=== PATIENT | male | born 1975 | race African-American/Black ===

== ENCOUNTER 2019-09-26 08:17 | Emergency (ER) | payer OTHER ==
[~2019-09-26] VITALS: Ht 190.5 cm; Wt 171.0 kg
[2019-09-26] MEDS ORDERED: ACETAMINOPHEN 500 MG TAB PO ONE (10:30)
[2019-09-26] MEDS ORDERED: METHOCARBAMOL 500 MG TAB PO ONE (10:30)
[2019-09-26 11:01] VITALS: BP 143/68
== END 2019-09-26 11:09 | disposition home or self-care (01) ==
LOC: ER 08:17
DX: S80.211A Abrasion, right knee, initial encounter (principal); M79.632 Pain in left forearm; R51 Headache; M54.2 Cervicalgia; M54.5 Low back pain; M25.532 Pain in left wrist; M25.562 Pain in left knee; M25.561 Pain in right knee; Z88.2 Allergy status to sulfonamides; V89.2XXA Person injured in unspecified motor-vehicle accident, traffic, initial encounter; Y93.I9 Activity, other involving external motion; Y92.488 Other paved roadways as the place of occurrence of the external cause; Y99.8 Other external cause status
CPT/HCPCS: 70450; 72125; 73090

== ENCOUNTER 2021-04-20 16:25 | Inpatient (IN) | payer OTHER ==
[~2021-04-20] VITALS: Ht 182.9 cm; Wt 174.8 kg
[2021-04-20] MEDS ORDERED: cloNIDine HCL 0.1 MG TAB PO ONE (17:00)
[2021-04-20 17:34] LABS: Basophils # (auto) 0.1 10 ^3/uL (0-0.2); Basophils % (auto) 0.8 % (0.0-2.0); Eosinophils # (auto) 0.2 10 ^3/uL (0-0.8); Eosinophils % (auto) 2.2 % (0.0-7.0); Monocytes # (auto) 0.8 10 ^3/uL (0-1.3); Neutrophils # (auto) 5.3 10 ^3/uL (1.6-8.6); Nucleated Red Blood Cells % 0.1 %; Red Blood Cells 5.69 10^6/uL (4.5-5.90); Red Cell Distribution Width 14.6 % (11.8-14.3)
[2021-04-20 17:36] LABS: Hematocrit 45.8 % (41.0-53.0); Hemoglobin 15.3 g/dL (13.5-17.5); Lymphocytes # (auto) 2.1 10 ^3/uL (0.4-5.4); Mean Corpuscular Hemoglobin 26.8 pg (28.0-32.0); Mean Corpuscular Hgb Conc. 33.3 g/dL (32.0-36.0); Mean Corpuscular Volume 80.5 fL (80.0-100.0); White Blood Cell 8.5 10^3/uL (4.4-10.8)
[2021-04-20] MEDS ORDERED: SODIUM CHLORIDE 0.9% 1,000 ML IV ONE (17:45)
[2021-04-20 17:52] LABS: Albumin 3.7 g/dL (3.4-5.0); Calcium 9.2 mg/dL (8.5-10.1); Magnesium 2.4 mg/dL (1.6-2.6); Potassium 3.3 mmol/L (3.5-5.1)
[2021-04-20 17:57] LABS: Bilirubin, Total 0.2 mg/dL (0.2-1.0); Total Protein 7.9 g/dL (6.4-8.2)
[2021-04-20 18:17] LABS: INR 0.96 (0.9-1.15); Partial Thromboplastin Time 29.5 sec (23.6-33.0)
[2021-04-20] MEDS ORDERED: DOCUSATE SOD 100 MG CAP PO PRN (21:00)
[2021-04-20] MEDS: SODIUM CHLORIDE 0.9% 1,000 ML IV SCH (21:00)
[2021-04-20] MEDS ORDERED: ACETAMINOPHEN 325 MG TAB PO PRN (21:00)
[2021-04-20] MEDS ORDERED: DEXTROSE (50%) 50ML SYRG IV PRN (21:00)
[2021-04-20] MEDS ORDERED: POTASSIUM CHL 20 Meq TABLET PO ONE (21:15)
[2021-04-20] MEDS: METOPROLOL TARTRATE 25 MG TAB PO SCH (22:00)
[2021-04-20] MEDS: InsuLIN REG 1unit/0.01ml Soln (100units/ml) SC SCH (22:00)
[2021-04-20] MEDS: ACCU-CHEK COMFORT CURVE STRIP VI SCH (22:19)
[2021-04-20] MEDS: ATORVASTATIN 20 MG TAB PO SCH (22:30)
[2021-04-20] MEDS ORDERED: MORPHINE SULFATE INJECTION 2 MG/ML SYRG IV PRN (23:30)
[2021-04-20] MEDS ORDERED: NITROGLYCERIN 0.4 MG SL TAB SL PRN (23:30)
[2021-04-21] MEDS: HYDROcodone-ACET 5/325MG TAB PO PRN ×2 (00:24→10:00)
[2021-04-21 05:00] VITALS: BP 169/103
[2021-04-21 05:23] VITALS: BP 169/103
[2021-04-21] MEDS ORDERED: HYDR25TA5 PO (05:45)
[2021-04-21] MEDS ORDERED: IBUP800T27 PO (05:45)
[2021-04-21] MEDS: ACCU-CHEK COMFORT CURVE STRIP VI SCH ×4 (06:52→22:23)
[2021-04-21] MEDS: InsuLIN REG 1unit/0.01ml Soln (100units/ml) SC SCH ×4 (06:54→22:27)
[2021-04-21 08:06] LABS: Basophils # (auto) 0 10 ^3/uL (0-0.2); Eosinophils # (auto) 0.2 10 ^3/uL (0-0.8); Monocytes # (auto) 0.7 10 ^3/uL (0-1.3); Nucleated Red Blood Cells % 0.2 %
[2021-04-21 08:09] LABS: Basophils % (auto) 0.5 % (0.0-2.0); Eosinophils % (auto) 2.3 % (0.0-7.0); Hematocrit 42.2 % (41.0-53.0); Lymphocytes # (auto) 2.1 10 ^3/uL (0.4-5.4); Lymphocytes % (auto) 28.1 % (10.0-50.0); Mean Corpuscular Hemoglobin 26.6 pg (28.0-32.0); Mean Corpuscular Hgb Conc. 33.1 g/dL (32.0-36.0); Mean Corpuscular Volume 80.3 fL (80.0-100.0); Monocytes % (auto) 9.3 % (0.0-12.0); Neutrophils # (auto) 4.5 10 ^3/uL (1.6-8.6); Neutrophils % (auto) 59.8 % (37.0-80.0); Red Blood Cells 5.25 10^6/uL (4.5-5.90); Red Cell Distribution Width 14.5 % (11.8-14.3); White Blood Cell 7.6 10^3/uL (4.4-10.8)
[2021-04-21 08:21] LABS: Albumin 3.2 g/dL (3.4-5.0); BUN/Creatinine Ratio 12.9; Calcium 8.9 mg/dL (8.5-10.1); Potassium 3.1 mmol/L (3.5-5.1)
[2021-04-21 08:24] LABS: Bilirubin, Total 0.6 mg/dL (0.2-1.0)
[2021-04-21 09:00] VITALS: BP 156/81
[2021-04-21] MEDS: ASPirin 81 mg TAB PO SCH (10:00)
[2021-04-21] MEDS: FAMOTIDINE (10MG/ML) 2ML VL IV SCH (10:00)
[2021-04-21] MEDS: METOPROLOL TARTRATE 25 MG TAB PO SCH ×2 (10:00→22:23)
[2021-04-21] MEDS ORDERED: POTASSIUM CHL 20 Meq TABLET PO ONE (12:30)
[2021-04-21] MEDS: SODIUM CHLORIDE 0.9% 1,000 ML IV SCH (13:40)
[2021-04-21] MEDS: ONDANSETRON HCL 4 MG/2 ML VIAL IV PRN ×2 (14:00→18:25)
[2021-04-21 16:00] VITALS: BP 154/98
[2021-04-21 22:00] VITALS: BP 147/105
[2021-04-21] MEDS: ATORVASTATIN 20 MG TAB PO SCH (22:22)
[2021-04-22] MEDS: HYDROcodone-ACET 5/325MG TAB PO PRN ×2 (01:36→21:34)
[2021-04-22 04:35] VITALS: BP 132/72
[2021-04-22] MEDS: SODIUM CHLORIDE 0.9% 1,000 ML IV SCH ×2 (06:10→23:00)
[2021-04-22] MEDS: ACCU-CHEK COMFORT CURVE STRIP VI SCH ×4 (06:28→21:25)
[2021-04-22] MEDS: InsuLIN REG 1unit/0.01ml Soln (100units/ml) SC SCH ×4 (06:32→21:31)
[2021-04-22 08:44] VITALS: BP 145/97
[2021-04-22] MEDS: FAMOTIDINE (10MG/ML) 2ML VL IV SCH (10:00)
[2021-04-22] MEDS: METOPROLOL TARTRATE 25 MG TAB PO SCH ×2 (10:00→11:30)
[2021-04-22] MEDS: ASPirin 81 mg TAB PO SCH (10:00)
[2021-04-22] MEDS: hydrALAZINE HCL 20 MG/ML VL IV PRN (12:13)
[2021-04-22 13:00] VITALS: BP_SYST 139; BP_SYST 150; BP_DIAS 113; BP_DIAS 91
[2021-04-22 17:02] VITALS: BP 115/69
[2021-04-22] MEDS: ATORVASTATIN 20 MG TAB PO SCH (21:26)
[2021-04-22 23:03] LABS: Cholesterol 133 mg/dL (< 200); HDL Cholesterol 51 mg/dL (40-59); LDL Cholesterol 66 mg/dL (< 100); Triglycerides 103 mg/dL (< 150)
[2021-04-23 05:04] VITALS: BP 137/70
[2021-04-23] MEDS: ACCU-CHEK COMFORT CURVE STRIP VI SCH ×4 (06:41→22:01)
[2021-04-23] MEDS: InsuLIN REG 1unit/0.01ml Soln (100units/ml) SC SCH ×4 (06:47→22:11)
[2021-04-23 08:00] VITALS: BP 134/81
[2021-04-23] MEDS: ASPirin 81 mg TAB PO SCH (10:14)
[2021-04-23] MEDS: METOPROLOL TARTRATE 25 MG TAB PO SCH ×2 (10:15→22:01)
[2021-04-23] MEDS: FAMOTIDINE (10MG/ML) 2ML VL IV SCH (10:16)
[2021-04-23] MEDS: CLOPIDOGREL BISULFATE 75 MG TAB PO SCH (10:16)
[2021-04-23 12:00] VITALS: BP_SYST 155; BP_SYST 165; BP_DIAS 142; BP_DIAS 96
[2021-04-23] MEDS: hydrALAZINE HCL 20 MG/ML VL IV PRN ×2 (13:02→19:10)
[2021-04-23 16:00] VITALS: BP 155/96
[2021-04-23] MEDS: HYDROcodone-ACET 5/325MG TAB PO PRN (20:18)
[2021-04-23] MEDS: SODIUM CHLORIDE 0.9% 1,000 ML IV SCH (20:45)
[2021-04-23] MEDS: ATORVASTATIN 20 MG TAB PO SCH (22:00)
[2021-04-24 05:15] VITALS: BP 149/75
[2021-04-24] MEDS: ACCU-CHEK COMFORT CURVE STRIP VI SCH ×3 (06:03→17:00)
[2021-04-24] MEDS: InsuLIN REG 1unit/0.01ml Soln (100units/ml) SC SCH ×3 (06:03→17:00)
[2021-04-24] MEDS: SODIUM CHLORIDE 0.9% 1,000 ML IV SCH (06:03)
[2021-04-24 09:00] VITALS: BP 146/101
[2021-04-24] MEDS ORDERED: IOHEXOL 350 MG/ML 100ML IJ ONE (09:13)
[2021-04-24] MEDS: FAMOTIDINE (10MG/ML) 2ML VL IV SCH (10:34)
[2021-04-24] MEDS: CLOPIDOGREL BISULFATE 75 MG TAB PO SCH (10:34)
[2021-04-24] MEDS: ASPirin 81 mg TAB PO SCH (10:38)
[2021-04-24] MEDS: METOPROLOL TARTRATE 25 MG TAB PO SCH ×2 (10:39→20:24)
[2021-04-24 13:00] VITALS: BP 144/102
[2021-04-24] MEDS ORDERED: NITR0.4S29 SL (13:06)
[2021-04-24] MEDS ORDERED: ASPI1CHW15 PO (13:06)
[2021-04-24] MEDS ORDERED: ATOR20TA50 PO (13:06)
[2021-04-24] MEDS ORDERED: CLOP75TA28 PO (13:06)
[2021-04-24] MEDS ORDERED: METF-370 PO (13:06)
[2021-04-24] MEDS ORDERED: MET25T PO (13:06)
[2021-04-24 17:00] VITALS: BP 156/114
[2021-04-24 18:57] VITALS: BP 156/114
[2021-04-24] MEDS: ATORVASTATIN 20 MG TAB PO SCH (20:23)
== END 2021-04-24 20:35 | disposition home health service (06) | DRG 45 ==
LOC: ER 16:25 → TELE 23:17 → TELE-WESTW 04-21 04:50
PROVIDERS: ADMIT Nurse Practitioner Family; ATTEND Internal Medicine
DX: I63.9 Cerebral infarction, unspecified (principal); I67.4 Hypertensive encephalopathy; N17.9 Acute kidney failure, unspecified; E11.649 Type 2 diabetes mellitus with hypoglycemia without coma; E66.01 Morbid (severe) obesity due to excess calories; E87.6 Hypokalemia; E11.65 Type 2 diabetes mellitus with hyperglycemia; I16.1 Hypertensive emergency; N18.9 Chronic kidney disease, unspecified; E11.22 Type 2 diabetes mellitus with diabetic chronic kidney disease; Z71.3 Dietary counseling and surveillance; E78.5 Hyperlipidemia, unspecified; G47.00 Insomnia, unspecified; G47.10 Hypersomnia, unspecified; I12.9 Hypertensive chronic kidney disease with stage 1 through stage 4 chronic kidney disease, or unspecified chronic kidney disease; M54.50 Low back pain, unspecified; Z20.822 Contact with and (suspected) exposure to COVID-19; R47.81 Slurred speech; R47.1 Dysarthria and anarthria; I77.810 Thoracic aortic ectasia; R29.810 Facial weakness; Z79.82 Long term (current) use of aspirin; Z79.899 Other long term (current) drug therapy; Z82.3 Family history of stroke; Z82.49 Family history of ischemic heart disease and other diseases of the circulatory system; Z83.3 Family history of diabetes mellitus; Z86.73 Personal history of transient ischemic attack (TIA), and cerebral infarction without residual deficits; Z88.2 Allergy status to sulfonamides; Z68.43 Body mass index [BMI] 50.0-59.9, adult; Z79.84 Long term (current) use of oral hypoglycemic drugs
CPT/HCPCS: 36415; 70450; 70551; 71045; 71260; 74177; 80053; 80061; 82962; 83036; 83735; 84443; 84484; 85025; 85610; 85730; 87426; 92523; 92610; 93005; 93306; 93886; 96360; 96361; G0378; J1815; J3490

== ENCOUNTER 2021-04-26 03:57 | Inpatient (IN) | payer OTHER ==
[~2021-04-26] VITALS: Ht 182.9 cm; Wt 175.3 kg
[~2021-04-26 03:57] MED LIST: ASPI1CHW15 PO; ATOR20TA50 PO; CLOP75TA28 PO; HYDR25TA5 PO; IBUP800T27 PO; MET25T PO; METF-370 PO; NITR0.4S29 SL
[2021-04-26] MEDS ORDERED: LABETALOL HCL 5 MG/ML 4ML SYRINGE IV ONE (04:30)
[2021-04-26 05:09] LABS: Basophils # (auto) 0.1 10 ^3/uL (0-0.2); Mean Corpuscular Volume 80.9 fL (80.0-100.0); Monocytes # (auto) 0.8 10 ^3/uL (0-1.3); Neutrophils # (auto) 5.3 10 ^3/uL (1.6-8.6); Nucleated Red Blood Cells % 0.1 %; White Blood Cell 8.4 10^3/uL (4.4-10.8)
[2021-04-26 05:11] LABS: Basophils % (auto) 0.7 % (0.0-2.0); Eosinophils # (auto) 0.2 10 ^3/uL (0-0.8); Eosinophils % (auto) 1.9 % (0.0-7.0); Hematocrit 45.2 % (41.0-53.0); Hemoglobin 14.7 g/dL (13.5-17.5); Lymphocytes # (auto) 2.1 10 ^3/uL (0.4-5.4); Lymphocytes % (auto) 24.9 % (10.0-50.0); Mean Corpuscular Hemoglobin 26.3 pg (28.0-32.0); Mean Corpuscular Hgb Conc. 32.5 g/dL (32.0-36.0); Neutrophils % (auto) 63.5 % (37.0-80.0); Red Blood Cells 5.59 10^6/uL (4.5-5.90); Red Cell Distribution Width 14.2 % (11.8-14.3)
[2021-04-26 05:16] LABS: INR 0.99 (0.9-1.15); Partial Thromboplastin Time 31.8 sec (23.6-33.0)
[2021-04-26 05:27] LABS: Albumin 3.5 g/dL (3.4-5.0); Calcium 9.3 mg/dL (8.5-10.1); Potassium 3.3 mmol/L (3.5-5.1)
[2021-04-26 05:29] LABS: BUN/Creatinine Ratio 16.8
[2021-04-26 05:31] LABS: Bilirubin, Total 0.4 mg/dL (0.2-1.0); Total Protein 7.5 g/dL (6.4-8.2)
[2021-04-26 06:55] LABS: Urine Bacteria NONE SEEN /hpf (None Seen); Urine Blood Negative /uL (Negative); Urine Specific Gravity 1.018 (1.001-1.035); Urine WBC 1 /hpf (0 - 3)
[2021-04-26] MEDS ORDERED: LORazepam 2MG/ML-1ML VIAL IV ONE (09:15)
[2021-04-26 11:47] LABS: Amphetamine Screen, Urine NEGATIVE (NEGATIVE); Barbiturate Scree,Urine NEGATIVE (NEGATIVE); Benzodiazephine Screen, Urine NEGATIVE (NEGATIVE); Cannabinoid Screen, Urine NEGATIVE (NEGATIVE); Cocaine Screen, Urine NEGATIVE (NEGATIVE); Opiate Scree,Urine NEGATIVE (NEGATIVE); Phencyclidine Screen, Urine NEGATIVE (NEGATIVE)
[2021-04-26] MEDS ORDERED: ONDANSETRON HCL 4 MG/2 ML VIAL IV PRN (13:00)
[2021-04-26] MEDS ORDERED: HYDROcodone-ACET 5/325MG TAB PO PRN (13:00)
[2021-04-26] MEDS ORDERED: ACETAMINOPHEN 325 MG TAB PO PRN (13:00)
[2021-04-26] MEDS ORDERED: NITROGLYCERIN 0.4 MG SL TAB SL PRN ×2 (13:00→15:45)
[2021-04-26] MEDS ORDERED: TEMAZEPAM 15 MG CAP PO PRN (13:00)
[2021-04-26] MEDS ORDERED: MORPHINE SULFATE 4 MG/ML SYR/VIAL IV PRN (13:00)
[2021-04-26] MEDS ORDERED: MORPHINE SULFATE INJECTION 2 MG/ML SYRG IV PRN (13:00)
[2021-04-26] MEDS ORDERED: DEXTROSE (50%) 50ML SYRG IV PRN (15:45)
[2021-04-26] MEDS: ACCU-CHEK COMFORT CURVE STRIP VI SCH ×2 (17:03→22:00)
[2021-04-26] MEDS: InsuLIN REG 1unit/0.01ml Soln (100units/ml) SC SCH ×2 (17:24→22:00)
[2021-04-26] MEDS: metFORMIN HYDROCHLORIDE 500 MG TAB PO SCH (17:51)
[2021-04-26] MEDS ORDERED: amLODIPine BESYLATE 5 MG TAB PO ONE (19:45)
[2021-04-26] MEDS ORDERED: POTASSIUM CHL 20 Meq TABLET PO ONE (19:45)
[2021-04-26] MEDS ORDERED: METOPROLOL TARTRATE 50 MG TAB PO ONE (19:45)
[2021-04-26] MEDS: ATORVASTATIN 20 MG TAB PO SCH (20:07)
[2021-04-26 20:30] VITALS: BP 175/106
[2021-04-26] MEDS: METOPROLOL TARTRATE 50 MG TAB PO SCH (22:00)
[2021-04-26] MEDS ORDERED: METOPROLOL TARTRATE 25 MG TAB PO SCH (22:00)
[2021-04-26] MEDS ORDERED: METOPROLOL TARTRATE 50 MG TAB PO SCH (22:00)
[2021-04-26] MEDS ORDERED: LABETALOL HCL 5 MG/ML 4ML SYRINGE IV PRN (23:15)
[2021-04-27 01:09] VITALS: BP 175/106
[2021-04-27 05:00] VITALS: BP 148/105
[2021-04-27] MEDS: ACCU-CHEK COMFORT CURVE STRIP VI SCH ×4 (06:17→23:28)
[2021-04-27] MEDS: InsuLIN REG 1unit/0.01ml Soln (100units/ml) SC SCH ×4 (06:21→23:29)
[2021-04-27 09:00] VITALS: BP 169/110
[2021-04-27] MEDS: HCTZ 25 MG TAB PO SCH (09:40)
[2021-04-27] MEDS: METOPROLOL TARTRATE 50 MG TAB PO SCH ×2 (09:41→23:28)
[2021-04-27] MEDS: CLOPIDOGREL BISULFATE 75 MG TAB PO SCH (09:42)
[2021-04-27] MEDS: metFORMIN HYDROCHLORIDE 500 MG TAB PO SCH ×2 (09:44→18:46)
[2021-04-27] MEDS ORDERED: ENOXAPARIN SOD 40 MG/0.4 ML SYRINGE SC SCH (10:00)
[2021-04-27] MEDS ORDERED: amLODIPine BESYLATE 5 MG TAB PO SCH ×2 (10:00)
[2021-04-27 10:59] LABS: Basophils % (auto) 0.7 % (0.0-2.0); Eosinophils # (auto) 0.1 10 ^3/uL (0-0.8); Eosinophils % (auto) 1.6 % (0.0-7.0); Hemoglobin 15.4 g/dL (13.5-17.5); White Blood Cell 7.4 10^3/uL (4.4-10.8)
[2021-04-27 11:01] LABS: Basophils # (auto) 0 10 ^3/uL (0-0.2); Hematocrit 46.2 % (41.0-53.0); Lymphocytes # (auto) 1.9 10 ^3/uL (0.4-5.4); Lymphocytes % (auto) 25.8 % (10.0-50.0); Mean Corpuscular Hemoglobin 26.8 pg (28.0-32.0); Mean Corpuscular Hgb Conc. 33.3 g/dL (32.0-36.0); Mean Corpuscular Volume 80.4 fL (80.0-100.0); Monocytes # (auto) 0.7 10 ^3/uL (0-1.3); Monocytes % (auto) 8.9 % (0.0-12.0); Neutrophils # (auto) 4.7 10 ^3/uL (1.6-8.6); Nucleated Red Blood Cells % 0.2 %; Red Blood Cells 5.75 10^6/uL (4.5-5.90); Red Cell Distribution Width 14.4 % (11.8-14.3)
[2021-04-27 11:10] LABS: Calcium 9.5 mg/dL (8.5-10.1); Potassium 3.3 mmol/L (3.5-5.1)
[2021-04-27 11:16] LABS: Albumin 3.7 g/dL (3.4-5.0); BUN/Creatinine Ratio 14.7; Bilirubin, Total 0.6 mg/dL (0.2-1.0); Total Protein 7.9 g/dL (6.4-8.2)
[2021-04-27 13:00] VITALS: BP 158/119
[2021-04-27] MEDS ORDERED: amLODIPine BESYLATE 5 MG TAB PO ONE ×2 (15:00→15:45)
[2021-04-27 17:00] VITALS: BP 153/108
[2021-04-27 22:05] VITALS: BP 138/90
[2021-04-27] MEDS: ATORVASTATIN 20 MG TAB PO SCH (23:27)
[2021-04-28 05:00] VITALS: BP 117/70
[2021-04-28] MEDS: ACCU-CHEK COMFORT CURVE STRIP VI SCH ×4 (06:51→21:39)
[2021-04-28] MEDS: InsuLIN REG 1unit/0.01ml Soln (100units/ml) SC SCH ×4 (06:51→21:43)
[2021-04-28 09:00] VITALS: BP 166/111
[2021-04-28] MEDS: ASPirin-EC 81 mg tab PO SCH (09:30)
[2021-04-28] MEDS: metFORMIN HYDROCHLORIDE 500 MG TAB PO SCH ×2 (09:30→19:02)
[2021-04-28] MEDS: CLOPIDOGREL BISULFATE 75 MG TAB PO SCH (09:31)
[2021-04-28] MEDS: HCTZ 25 MG TAB PO SCH (09:32)
[2021-04-28] MEDS: CARVEDILOL 12.5 MG TAB PO SCH ×2 (09:32→21:38)
[2021-04-28] MEDS: amLODIPine BESYLATE 5 MG TAB PO SCH (09:33)
[2021-04-28] MEDS ORDERED: amLODIPine BESYLATE 5 MG TAB PO SCH (10:00)
[2021-04-28 13:00] VITALS: BP 149/109
[2021-04-28 17:00] VITALS: BP 117/79
[2021-04-28] MEDS: ATORVASTATIN 20 MG TAB PO SCH (21:39)
[2021-04-28 22:00] VITALS: BP 125/84
[2021-04-29 05:00] VITALS: BP 138/79
[2021-04-29] MEDS: InsuLIN REG 1unit/0.01ml Soln (100units/ml) SC SCH ×3 (06:47→16:20)
[2021-04-29] MEDS: ACCU-CHEK COMFORT CURVE STRIP VI SCH ×3 (06:52→16:19)
[2021-04-29 08:00] VITALS: BP 156/80
[2021-04-29] MEDS: metFORMIN HYDROCHLORIDE 500 MG TAB PO SCH (09:18)
[2021-04-29] MEDS: CARVEDILOL 12.5 MG TAB PO SCH (09:18)
[2021-04-29] MEDS: HCTZ 25 MG TAB PO SCH (09:19)
[2021-04-29] MEDS: ASPirin-EC 81 mg tab PO SCH (09:19)
[2021-04-29] MEDS: amLODIPine BESYLATE 5 MG TAB PO SCH (09:20)
[2021-04-29] MEDS: CLOPIDOGREL BISULFATE 75 MG TAB PO SCH (09:20)
[2021-04-29 12:00] VITALS: BP 141/91
[2021-04-29] MEDS ORDERED: CAR125T PO (15:22)
[2021-04-29] MEDS ORDERED: NIFE1TAB31 PO (15:23)
[2021-04-29 16:00] VITALS: BP 132/96
[2021-04-29] MEDS ORDERED: NIFEdipine ER 30 MG TAB PO ONE (16:15)
[2021-04-29 17:02] VITALS: BP 141/91
[2021-04-30] MEDS ORDERED: NIFEdipine ER 30 MG TAB PO SCH (10:00)
== END 2021-04-29 18:05 | disposition home or self-care (01) | DRG 45 ==
LOC: ER 04:07 → TELE 12:50 → TELE-CENTR 21:05
PROVIDERS: ADMIT Internal Medicine; ATTEND Internal Medicine
DX: I63.81 Other cerebral infarction due to occlusion or stenosis of small artery (principal); E11.22 Type 2 diabetes mellitus with diabetic chronic kidney disease; Z68.43 Body mass index [BMI] 50.0-59.9, adult; I16.1 Hypertensive emergency; E11.65 Type 2 diabetes mellitus with hyperglycemia; E66.01 Morbid (severe) obesity due to excess calories; E78.00 Pure hypercholesterolemia, unspecified; N18.9 Chronic kidney disease, unspecified; E78.5 Hyperlipidemia, unspecified; E87.6 Hypokalemia; F17.200 Nicotine dependence, unspecified, uncomplicated; I12.9 Hypertensive chronic kidney disease with stage 1 through stage 4 chronic kidney disease, or unspecified chronic kidney disease; G47.10 Hypersomnia, unspecified; R47.81 Slurred speech; R29.810 Facial weakness; M54.50 Low back pain, unspecified; Z20.822 Contact with and (suspected) exposure to COVID-19; Z79.899 Other long term (current) drug therapy; Z82.49 Family history of ischemic heart disease and other diseases of the circulatory system; Z83.3 Family history of diabetes mellitus; Z82.3 Family history of stroke; Z79.02 Long term (current) use of antithrombotics/antiplatelets; Z79.82 Long term (current) use of aspirin; Z88.2 Allergy status to sulfonamides; Z86.73 Personal history of transient ischemic attack (TIA), and cerebral infarction without residual deficits; Z71.3 Dietary counseling and surveillance; Z79.84 Long term (current) use of oral hypoglycemic drugs
CPT/HCPCS: 36415; 70450; 70551; 80053; 80307; 81001; 82962; 84484; 85025; 85610; 85730; 87426; 92523; 92610; 93005; 96374; G0378; J1815

== ENCOUNTER 2021-05-20 14:32 | Emergency (ER) | payer OTHER ==
[~2021-05-20] VITALS: Ht 182.9 cm; Wt 173.3 kg
[~2021-05-20 14:32] MED LIST changes: +CAR125T PO; -MET25T PO; +NIFE1TAB31 PO
[2021-05-20 18:10] VITALS: BP 153/101
[2021-05-20] MEDS ORDERED: cloNIDine HCL 0.1 MG TAB PO ONE (18:15)
== END 2021-05-20 18:29 | disposition home or self-care (01) ==
LOC: ER 14:32
DX: R51.9 Headache, unspecified (principal); E11.9 Type 2 diabetes mellitus without complications; I10 Essential (primary) hypertension; Z86.73 Personal history of transient ischemic attack (TIA), and cerebral infarction without residual deficits; Z88.2 Allergy status to sulfonamides
CPT/HCPCS: 70450; 93005

== ENCOUNTER 2021-07-09 22:41 | Emergency (ER) | payer OTHER ==
[~2021-07-09] VITALS: Ht 185.4 cm; Wt 172.4 kg
[2021-07-09] MEDS ORDERED: amLODIPine BESYLATE 5 MG TAB PO ONE (23:15)
[2021-07-09 23:33] LABS: Basophils # (auto) 0.1 10 ^3/uL (0-0.2); Eosinophils # (auto) 0.2 10 ^3/uL (0-0.8); Lymphocytes # (auto) 2.5 10 ^3/uL (0.4-5.4); White Blood Cell 9.9 10^3/uL (4.4-10.8)
[2021-07-09 23:34] LABS: Basophils % (auto) 0.6 % (0.0-2.0); Eosinophils % (auto) 1.9 % (0.0-7.0); Hematocrit 42.8 % (41.0-53.0); Hemoglobin 14.4 g/dL (13.5-17.5); Lymphocytes % (auto) 25.5 % (10.0-50.0); Mean Corpuscular Hemoglobin 27.1 pg (28.0-32.0); Mean Corpuscular Hgb Conc. 33.6 g/dL (32.0-36.0); Mean Corpuscular Volume 80.8 fL (80.0-100.0); Monocytes % (auto) 10.1 % (0.0-12.0); Neutrophils # (auto) 6.1 10 ^3/uL (1.6-8.6); Neutrophils % (auto) 61.9 % (37.0-80.0); Red Cell Distribution Width 14.7 % (11.8-14.3)
[2021-07-09 23:53] LABS: Albumin 3.7 g/dL (3.4-5.0); BUN/Creatinine Ratio 14.3; Calcium 9.4 mg/dL (8.5-10.1); Potassium 3.9 mmol/L (3.5-5.1)
[2021-07-09 23:56] LABS: Bilirubin, Total 0.3 mg/dL (0.2-1.0); Total Protein 7.3 g/dL (6.4-8.2)
[2021-07-10 01:02] VITALS: BP 126/83
== END 2021-07-10 01:08 | disposition home or self-care (01) ==
LOC: ER 22:41
DX: I16.0 Hypertensive urgency (principal); I10 Essential (primary) hypertension; E66.01 Morbid (severe) obesity due to excess calories; E11.9 Type 2 diabetes mellitus without complications; Z86.73 Personal history of transient ischemic attack (TIA), and cerebral infarction without residual deficits; Z68.43 Body mass index [BMI] 50.0-59.9, adult; Z88.2 Allergy status to sulfonamides
CPT/HCPCS: 36415; 80053; 84484; 85025

== ENCOUNTER 2022-07-19 19:36 | Emergency (ER) | payer MEDICAID, OTHER ==
[~2022-07-19] VITALS: Ht 182.9 cm; Wt 167.8 kg
[2022-07-19 21:37] LABS: Basophils # (auto) 0.1 10 ^3/uL (0-0.2); Basophils % (auto) 0.8 % (0.0-2.0); Eosinophils # (auto) 0.1 10 ^3/uL (0-0.8); Hematocrit 42.7 % (41.0-53.0); Hemoglobin 14.1 g/dL (13.5-17.5); Lymphocytes # (auto) 2.7 10 ^3/uL (0.4-5.4); Lymphocytes % (auto) 28.9 % (10.0-50.0); Mean Corpuscular Hemoglobin 27.1 pg (28.0-32.0); Monocytes # (auto) 1.2 10 ^3/uL (0-1.3); Monocytes % (auto) 12.7 % (0.0-12.0); Neutrophils # (auto) 5.3 10 ^3/uL (1.6-8.6); Neutrophils % (auto) 56.6 % (37.0-80.0); Nucleated Red Blood Cells % 0.1 %; Red Cell Distribution Width 14.1 % (11.8-14.3); White Blood Cell 9.5 10^3/uL (4.4-10.8)
[2022-07-19 21:50] LABS: INR 0.91 (0.9-1.15); Partial Thromboplastin Time 32.5 sec (24.6-33.4)
[2022-07-19 21:54] LABS: Albumin 3.7 g/dL (3.4-5.0); Calcium 9.5 mg/dL (8.5-10.1); Potassium 3.6 mmol/L (3.5-5.1)
[2022-07-19 21:57] LABS: Bilirubin, Total 0.3 mg/dL (0.2-1.0)
[2022-07-19] MEDS ORDERED: AMOX-277 PO (22:44)
[2022-07-19] MEDS ORDERED: DESL5TAB29 PO (22:44)
[2022-07-20 00:09] VITALS: BP 132/83
== END 2022-07-20 00:12 | disposition home or self-care (01) ==
LOC: ER 19:36
DX: R55 Syncope and collapse (principal); J01.00 Acute maxillary sinusitis, unspecified; E11.9 Type 2 diabetes mellitus without complications; I10 Essential (primary) hypertension; Z86.73 Personal history of transient ischemic attack (TIA), and cerebral infarction without residual deficits; Z88.2 Allergy status to sulfonamides
CPT/HCPCS: 36415; 70450; 70486; 71045; 72125; 80053; 83605; 83690; 83880; 84484; 85025; 85379; 85610; 85730; 87040; 93005

== ENCOUNTER 2023-11-19 10:54 | Emergency (ER) | payer MEDICAID ==
[~2023-11-19] VITALS: Ht 182.9 cm; Wt 165.3 kg
[~2023-11-19 10:54] MED LIST changes: +AMOX875T4 PO; +ASPI-736 PO; -ASPI1CHW15 PO; -CAR125T PO; +CARV-216 PO; +DESL5TAB29 PO; +IBUP-1456 PO; -IBUP800T27 PO
[2023-11-19 12:25] VITALS: BP 143/92; PULSE 99; RESP 16; TEMP 98.6; O2SAT 95
[2023-11-19] MEDS: methylPREDNISolone SOD SUCC 125 MG/2 ML VL IM ONE (12:57)
[2023-11-19] MEDS ORDERED: CLIN1CAP70 PO (13:29)
[2023-11-19] MEDS ORDERED: METH4PAK PO (13:29)
== END 2023-11-19 13:39 | disposition home or self-care (01) ==
LOC: ER 10:54
DX: T78.3XXA Angioneurotic edema, initial encounter (principal); K04.7 Periapical abscess without sinus; I10 Essential (primary) hypertension; E11.9 Type 2 diabetes mellitus without complications; Z86.73 Personal history of transient ischemic attack (TIA), and cerebral infarction without residual deficits; Z88.2 Allergy status to sulfonamides; Z79.899 Other long term (current) drug therapy; Y92.89 Other specified places as the place of occurrence of the external cause
CPT/HCPCS: 96372; 99283; J2919

== ENCOUNTER 2024-09-20 09:06 | Emergency (ER) | payer MEDICAID ==
[~2024-09-20] VITALS: Ht 182.9 cm; Wt 159.7 kg
[~2024-09-20 09:06] MED LIST changes: +CLIN1CAP70 PO; +METH4PAK PO
[2024-09-20 09:20] VITALS: TEMP 97.9
[2024-09-20] MEDS: SODIUM CHLORIDE 0.9% 1,000 ML IV ONE (09:54)
[2024-09-20] MEDS: methylPREDNISolone SOD SUCC 125 MG/2 ML VL IV ONE (09:54)
[2024-09-20] MEDS: FAMOTIDINE (10MG/ML) 2ML VL IV ONE (09:54)
[2024-09-20] MEDS: diphenhdrAMINE HCL 50 MG/1 ML VL IV ONE (09:54)
--- NOTE | 2024-09-20 10:04 | ED.PDOC ---
HPI Allergic reaction HPI Comments 49 y/o M, presents to the ED for CC of allergic reaction. Patient states, that he was exposed to unknown irritant and has been experiencing right sided facial swelling onset, 0830 this morning (09/20/24). Patient reports, that he did eat pot roast with mushrooms however, is unsure if symptoms my be d/t this. Patient denies respiratory distress, drooling, or difficulty swallowing. No other symptoms or modifying factors present at this time. Chief Complaint: Allergic Reaction Time Seen by MD: 09:50 Primary Care Provider: ROBINSON Reviewed Notes: Nurses Notes, Medications, Allergies Allergies: Coded Allergies: Sulfa Antibiotics (Verified Allergy, Unknown, 09/26/19) Uncoded Allergies: FOOD MULTIPLE (Allergy, Intermediate, 09/20/24) ENVIRONMENTAL (Allergy, Unknown, 09/20/24) Home Meds Active Scripts Clindamycin Hcl (Clindamycin Hcl) 300 Mg Cap, 300 MG PO QID, #28 CAP Prov:SREEDHAR BOLAND 11/19/23 Methylprednisolone (Medrol Dosepak) 4 Mg Tyler, 4 MG PO UD, #21 TAB UAD Prov:SREEDHAR BOLAND 11/19/23 Desloratadine (Clarinex) 5 Mg Tab, 5 MG PO DAILY for 10 Days, #10 TAB Prov:CAESAR PEÑA DO 07/19/22 Amoxicillin & Pot Clavulanate (Amoxicillin/Potassium Cla) 875 Mg Tab, 1 TAB PO BID for 10 Days, #20 TAB Prov:CAESAR PEÑA DO 07/19/22 Nifedipine (Nifedipine Er) 30 Mg Tab, 60 MG PO DAILY for 30 Days, #60 TAB Prov:TREASURE JADE [employer] [employer] 04/29/21 Carvedilol (COREG) 12.5 Mg Tab, 12.5 MG PO Q12HR for 30 Days, #60 TAB Prov:TREASURE JADE [employer] [employer] 04/29/21 Metformin Hydrochloride (Metformin Hcl) 500 Mg Tab, 1 TAB PO BID, #60 TAB 3 Refills Prov:TREASURE JADE NP 04/24/21 Nitroglycerin (NTROSTAT SUBLINGUAL) 0.4 Mg Sl, 0.4 MG SL Q5MINP PRN for 30 Days, #30 TAB Prov:TREASURE JADE NP 04/24/21 Clopidogrel Bisulfate (Plavix) 75 Mg Tab, 75 MG PO DAILY for 30 Days, #30 TAB Prov:TREASURE JADE [employer] [employer] 04/24/21 Aspirin (Aspirin Low Strength) 81 Mg Chw, 81 MG PO DAILY for 30 Days, #30 TAB.CHEW Prov:TREASURE JADE [employer] [employer] 04/24/21 Atorvastatin Calcium (ATORVASTATIN CALCIUM) 20 Mg Tab, 40 MG PO HS for 30 Days, #30 TAB Prov:TREASURE JADE [employer] [employer] 04/24/21 Reported Medications Ibuprofen (Ibuprofen) 800 Mg Tab, 800 MG PO PRN PRN for PAIN SCALE 1 THRU 6, MG 04/21/21 Hctz (Hydrochlorothiazide) 25 Mg Tab, 50 MG PO DAILY, TAB 04/21/21 Information Source: Patient Mode of Arrival: Ambulatory Severity: Moderate Rash: None SOB: None Difficulty swallowing: None Pruritus: None Timing: Hours Duration: Since onset Prehospital treatment: None Location: Face Exposed to: Food Developed: Facial Swelling History of: None Modyifying Factors: None Associated Sign and Symptoms: None Past Medical History PAST MEDICAL HISTORY: CVA, DM, HTN Surgical History: Denies all surgeries Family History Family History: Reviewed,noncontributory to illness Social History Smoker: Non-Smoker Alcohol: Denies ETOH Use Drugs: Denies Drug Use Lives In: Home Constitutional: denies: chills, diaphoresis, fatigue, fever, malaise, sweats, w eakness, others EENTM: denies: blurred vision, double vision, ear bleeding, ear discharge, ear drainage, ear pain, ear ringing, eye pain, eye redness, hearing loss, mouth pain, mouth swelling, nasal discharge, nose bleeding, nose congestion, nose pain, photophobia, tearing, throat pain, throat swelling, voice changes, others Respiratory: denies: cough, hemoptysis, orthopnea, SOB at rest, shortness of breath, SOB with excertion, stridor, wheezing, others Cardiovascular: denies: chest pain, dizzy spells, diaphoresis, Dyspnea on exertion, edema, irregular heart beat, left arm pain, lightheadedness, palpitations, PND, syncope, others Gastrointestinal: denies: abdomen distended, abdominal pain, blood streaked bowels, constipated, diarrhea, dysphagia, difficulty swallowing, hematemesis, melena, nausea, poor appetite, poor fluid intake, rectal bleeding, rectal pain, vomiting, others Genitourinary: denies: burning, dysuria, flank pain, frequency, hematuria, incontinence, penile discharge, penile sore, pain, testicle pain, testicle swe lling, urgency, others Neurological: denies: dizziness, fainting, headache, left sided numbness, left sided weakness, numbness, paresthesia, pre-existing deficit, right sided numbness, right sided weakness, seizure, speech problems, tingling, tremors, weakness, others Musculoskeletal: denies: back pain, gout, joint pain, joint swelling, muscle pain, muscle stiffness, neck pain, others Integumetry: denies: bruises, change in color, change in hair/nails, dryness, laceration, lesions, lumps, rash, wounds, others Allergic/Immunocompromised: reports: others (facial swelling); denies: Difficulty Healing, Frequent Infections, Hives, Itching Hematologic/Lymphatic: denies: anemia, blood clots, easy bleeding, easy bruising, swollen glands, others Endocrine: denies: excessive hunger, excessive sweating, excessive thirst, excessive urination, flushing, intolerance to cold, intolerance to heat, unexplained weight gain, unexplained weight loss, others Psychiatric: denies: anxiety, bipolar disorder, depression, hopeless, panic disorder, schizophrenia, sleepless, suicidal, others All Other Systems: Reviewed and Negative Physical Exam General Appearance: Normal HEENT: Pharynx Normal Neck: Normal Inspection Respiratory: No Respiratory Distress Cardiovascular: No Edema Breast Exam: Deferred Gastrointestinal: Non Tender Genitalia: Deferred Pelvic: Deferred Rectal: Deferred Extremities: No pedal edema Neurologic: No Motor Deficits Cerebellar Function: NOT DONE Reflexes: NOT DONE Skin: Normal Color Lymphatic: NOT DONE Was a procedure done? Was a procedure done?: No Differential diagnosis (all) Differential Diagnosis: Angioedema X-Ray, Labs, Meds, VS Vital Signs Date Time Temp Pulse Resp B/P (MAP) Pulse Ox O2 Delivery O2 Flow Rate FiO2 09/20/24 11:28 79 16 123/83 (96) 100 09/20/24 09:50 Room Air* 0 21 09/20/24 09:20 97.9 96 18 142/98 (113) 97 97.9 Current Medications Medications (Trade) Dose Ordered Sig/Chiquita Route Start Time Stop Time Status Last Admin Methylprednisolone Sodium Succinate (Solu Medrol) 125 mg ONCE ONCE IV 09/20/24 09:45 09/20/24 09:46 DC 09/20/24 09:54 Famotidine (Pepcid Injection) 20 mg ONCE ONCE IV 09/20/24 09:45 09/20/24 09:46 DC 09/20/24 09:54 Diphenhydramine HCl (Benadryl Injection) 50 mg ONCE ONCE IV 09/20/24 09:45 09/20/24 09:46 DC 09/20/24 09:54 Sodium Chloride 1,000 ml @ 1,000 mls/hr Q1H ONCE IV 09/20/24 09:45 09/20/24 10:44 DC 09/20/24 09:54 Time of 1ST Reevaluation: 10:20 Reevaluation 1ST: Unchanged Patient Education/Counseling: Diagnosis, Treatment Family Education/Counseling: No Family Present SEPSIS Sepsis Screen Date sepsis recognized/suspect: Sep 20, 2024 Time Sepsis recognized/suspect: 919 Recent Procedure: No On Antibiotic Therapy: No Respiratory Rate >20: No Heart Rate >90: Yes Temp<36 C (96.8 F) or >38.3 C: No SBP <90 or MAP <65 mmHG: No New Acute Mental Status Change: No Is the patient on CPAP, BIPAP,: No Vital Signs Date Time Temp Pulse Resp B/P (MAP) Pulse Ox O2 Delivery O2 Flow Rate FiO2 09/20/24 11:28 79 16 123/83 (96) 100 09/20/24 09:50 Room Air* 0 21 09/20/24 09:20 97.9 96 18 142/98 (113) 97 97.9 Medications Medications Dose Ordered Sig/Chiquita Route Start Time Stop Time Status Last Admin Dose Admin Diphenhydramine HCl 50 mg ONCE ONCE IV 09/20/24 09:45 09/20/24 09:46 DC 09/20/24 09:54 Famotidine 20 mg ONCE ONCE IV 09/20/24 09:45 09/20/24 09:46 DC 09/20/24 09:54 Methylprednisolone Sodium Succinate 125 mg ONCE ONCE IV 09/20/24 09:45 09/20/24 09:46 DC 09/20/24 09:54 Sodium Chloride 1,000 ml @ 1,000 mls/hr Q1H ONCE IV 09/20/24 09:45 09/20/24 10:44 DC 09/20/24 09:54 Departure 1 Departure Time of Disposition: 13:23 (Patient likely with an allergic reaction. Patient's symptoms improved. We will discharge patient home with outpatient follow up) Impression: Primary Impression: Allergic reaction Qualified Codes: T78.40XA - Allergy, unspecified, initial encounter Disposition: HOME / SELF CARE / HOMELESS Condition: Stable Additional Instructions: You had an allergic reaction. You received medications in the ER. You were prescribed steroids and an epinephrine pain. Please use as directed. You should follow up with your regular doctor within one week to ensure you are doing better. You may benefit from an appointment with an Rn Endoscopy. If your symptoms worsen, or you have any other concerns then please return to the ER. e-Prescriptions Prednisone (Prednisone) 20 Mg Tab 40 MG PO DAILY for 5 Days, #10 MG Prov: PARKER BHATIA MD 09/20/24 Discharged With: Self Critical Care Note Critical Care Time?: Yes Critical care comment: Concern for anaphylaxis Authorized and Performed by: Parker Bhatia MD Total critical care time: Approximately 38 minutes Due to a high probability of clinically significant, life threatening deterioration, the patient required my highest level of preparedness to intervene emergently and I personally spent this critical care time directly and personally managing the patient. This critical care time included obtaining a history; examining the patient; pulse oximetry; ordering and review of studies; arranging urgent treatment with development of a management plan; evaluation of patient's response to treatment; frequent reassessment; and, discussions with other providers. This critical care time was performed to assess and manage the high probability of imminent, life-threatening deterioration that could result in multi-organ failure. It was exclusive of separately billable procedures and treating other patients and teaching time. Please see my other sections and the rest of the note for further information on patient assessment and treatment. Stability Stability form required: No Heart Score Heart Score: Heart Score Response (Comments) Value History N/A 0 EKG N/A 0 Age N/A 0 Risk Factors N/A 0 Troponin N/A 0 Total 0 I personally scribed for PARKER BHATIA MD ([email or web address]) on 09/20/24 at 10:04. Electronically submitted by Maria Elena Pedraza ([email or web address]). PARKER BHATIA MD Sep 20, 2024 10:04
[2024-09-20 11:28] VITALS: BP 123/83; PULSE 79; RESP 16; O2SAT 100
[2024-09-20] MEDS ORDERED: PRED20TA2 PO (13:24)
== END 2024-09-20 13:48 | disposition home or self-care (01) ==
LOC: ER 09:06
DX: T78.40XA Allergy, unspecified, initial encounter (principal); E11.9 Type 2 diabetes mellitus without complications; I10 Essential (primary) hypertension; Z86.73 Personal history of transient ischemic attack (TIA), and cerebral infarction without residual deficits; Z88.2 Allergy status to sulfonamides; Z79.899 Other long term (current) drug therapy; Z79.84 Long term (current) use of oral hypoglycemic drugs; Z79.82 Long term (current) use of aspirin; Z79.02 Long term (current) use of antithrombotics/antiplatelets; X58.XXXA Exposure to other specified factors, initial encounter
CPT/HCPCS: 96361; 96374; 96375; 99284; J1200; J2919; J3490; J7030